=== PATIENT | male | born 1965 | race Caucasian/White ===

== ENCOUNTER 2019-01-24 16:23 | Emergency (ER) | payer MEDICAID, OTHER ==
[2019-01-24] MEDS: IBUPROFEN 600 MG TAB PO (17:41)
== END 2019-01-24 19:23 | disposition home or self-care (01) ==
LOC: FTE 16:23
DX: S52.125A Nondisplaced fracture of head of left radius, initial encounter for closed fracture (principal); W11.XXXA Fall on and from ladder, initial encounter; Y92.9 Unspecified place or not applicable
CPT/HCPCS: 29105; 72125; 73080-LT; 73090; 73110-LT; 99284-25